=== PATIENT | male | born 1985 | race Caucasian/White ===

== ENCOUNTER 2018-07-16 17:01 | Emergency (ER) | payer MEDICAID ==
[2018-07-16] MEDS: KETOROLAC 30 MG INJ IM (18:42)
[2018-07-16] MEDS ORDERED: SILVER SULFADIAZINE 1% 25 GM CR TOP (19:00)
== END 2018-07-16 19:25 | disposition home or self-care (01) ==
LOC: FTE 17:01
DX: R05 Cough (principal)
CPT/HCPCS: 71046; 96372; 99284-25